=== PATIENT | male | born 1960 ===

== ENCOUNTER 2023-09-06 10:30 | Inpatient (IN) | payer MEDICAID ==
[2023-09-06] MEDS ORDERED: Ketorolac 30 MG/ML SDV IVPUSH ONE (11:34)
[2023-09-06] MEDS ORDERED: Polyethylene Glycol 3350 Powder 17 GM Packet PO PRN (11:39)
[2023-09-06] MEDS ORDERED: Acetaminophen 325 MG Tab PO PRN (11:39)
[2023-09-06] MEDS ORDERED: Sennosides/Docusate Sodium 50-8.6 MG Tab PO PRN (11:39)
[2023-09-06] MEDS ORDERED: Ondansetron 4 MG/2 ML SDV IV PRN (11:39)
[2023-09-06] MEDS ORDERED: 50% Dextrose in Water 50 ML Syringe IVPUSH PRN (11:39)
[2023-09-06] MEDS ORDERED: Glucagon,Human Recombinant 1 MG Vial IM PRN (11:39)
[2023-09-06] MEDS ORDERED: Temazepam 15 MG Cap PO PRN (11:39)
[2023-09-06] MEDS ORDERED: Nicotine 21 MG/24 Hr Patch TRDERM SCH ×2 (11:45)
[2023-09-06] MEDS ORDERED: Piperacillin/Tazobactam 4.5 GM in Sodium Chloride 0.9% 100 ML IV ONE ×2 (12:00→16:00)
[2023-09-06 12:02] LABS: BASOPHILS ABSOLUTE AUTO 0.02 10^3/uL (0.00-0.50); BASOPHILS PERCENT AUTO 0.3 % (0-1); EOSINOPHILS ABSOLUTE AUTO 0.21 10^3/uL (0.00-1.50); HEMATOCRIT 33.4 % (42.0-52.0); HEMOGLOBIN 10.7 g/dL (14.0-18.0); IMMATURE GRAN ABSOLUTE AUTO 0.01 10^3/uL (0.00-0.49); IMMATURE GRAN PERCENT AUTO 0.1 % (0.0-4.9); LYMPHOCYTES ABSOLUTE AUTO 2.45 10^3/uL (0.60-5.00); LYMPHOCYTES PERCENT AUTO 34.8 % (24-44); MEAN CORPUSCULAR HEMOGLOBIN 28.3 pg (27.0-32.0); MEAN CORPUSCULAR VOLUME 88.4 fL (83.0-97.0); MONOCYTES ABSOLUTE AUTO 0.51 10^3/uL (0.00-1.50); MONOCYTES PERCENT AUTO 7.2 % (0-10); NEUTROPHILS ABSOLUTE AUTO 3.84 x10^3/uL (1.80-8.00); NEUTROPHILS PERCENT AUTO 54.6 % (41-71); PLATELET COUNT,PLT 287 10^3/uL (150-400); RED BLOOD CELL COUNT 3.78 x10^6/uL (4.50-6.00)
[2023-09-06 12:20] LABS: ALANINE AMINOTRANSFERASE,ALT 14 U/L (12-78); ALBUMIN 2.6 g/dL (3.4-5.0); ALKALINE PHOSPHATASE 85 U/L (46-116); ASPARTATE AMNIOTRANSFERASE,AST 24 U/L (15-37); BILIRUBIN TOTAL 0.3 mg/dL (0.0-1.0); BLOOD UREA NITROGEN,BUN 16 mg/dL (7-18); CALCIUM 8.7 mg/dL (8.4-10.1); CARBON DIOXIDE,CO2 25 mmol/L (21-32); CHLORIDE,CL 103 mEq/L (98-106); EST CRCL DRUG DOSING (CG) 72.82 mL/min; ESTIMATED GFR 84 mL/min (>=60); GLUCOSE RANDOM 219 mg/dL (75-99); MAGNESIUM 2.1 mg/dL (1.8-2.4); POTASSIUM,K 3.6 mEq/L (3.5-5.0); PROTEIN TOTAL,TP 8.8 g/dL (6.4-8.2); SODIUM,NA 139 mEq/L (136-145)
[2023-09-06 12:21] LABS: ETHANOL BLOOD MEDICAL < 3 mg/dL (0-3)
[2023-09-06 12:22] LABS: LACTIC ACID 3.5 mmol/L (0.4-2.0)
[2023-09-06] MEDS ORDERED: Sodium Chloride 0.9% 1,000 ML IV ONE (12:50)
[2023-09-06 13:46] LABS: APPEARANCE,URINE CLEAR (CLEAR); BILIRUBIN,URINE NEGATIVE (NEGATIVE); COLOR,URINE YELLOW (YELLOW); GLUCOSE,URINE >=1000 mg/dL (NEGATIVE); KETONES,URINE NEGATIVE (NEGATIVE); LEUKOCYTE ESTERASE,URINE NEGATIVE (NEGATIVE); NITRITE,URINE NEGATIVE (NEGATIVE); OCCULT BLOOD,URINE TRACE-INTACT (NEGATIVE); PH,URINE 5.5 (4.5-8.0); PROTEIN,URINE 100 mg/dL (NEGATIVE); UROBILINOGEN,URINE 0.2 EU/dL (0.2-1.0)
[2023-09-06 13:49] LABS: AMPHETAMINES,URINE NEGATIVE (NEGATIVE); BARBITURATES,URINE NEGATIVE (NEGATIVE); BENZODIAZEPINE,URINE NEGATIVE (NEGATIVE); MDMA (ECSTASY), URINE NEGATIVE (NEGATIVE); METHADONE,URINE NEGATIVE (NEGATIVE); METHAMPHETAMINES,URINE POSITIVE (NEGATIVE); OPIATES,URINE NEGATIVE (NEGATIVE); OXYCODONE,URINE POSITIVE (NEGATIVE); PHENCYCLIDINE,URINE NEGATIVE (NEGATIVE); TCA,URINE NEGATIVE (NEGATIVE)
[2023-09-06 13:53] LABS: BACTERIA,URINE OCCASIONAL /HPF (NOT SEEN); RBC,URINE 0-5 /HPF (0-5); SQUAMOUS EPITHELIAL CELLS,UR NOT SEEN /HPF (NOT SEEN); WBC,URINE NOT SEEN /HPF (0-5); YEAST,URINE FEW /HPF (NOT SEEN)
[2023-09-06] MEDS ORDERED: Gabapentin 300 MG Cap PO SCH (14:00)
[2023-09-06] MEDS ORDERED: Bisacodyl 5 MG Tab PO PRN (14:12)
[2023-09-06] MEDS ORDERED: Insulin Regular, Human 100 Units/ML 3 ML Vial SUBCUT SCH (17:00)
[2023-09-06] MEDS ORDERED: Insulin Lispro 100 Units/ML 3 ML Vial SUBCUT SCH (17:30)
[2023-09-06] MEDS ORDERED: Iopamidol 755 Mg/ML 100 ML Bottle IVPUSH ONE (17:41)
[2023-09-06] MEDS: Piperacillin/Tazobactam 3.375 GM in Sodium Chloride 0.9% 100 ML IV SCH ×2 (18:14→23:55)
[2023-09-06] MEDS: oxyCODONE 5 MG Tab PO PRN (19:43)
[2023-09-06] MEDS: Gabapentin 300 MG Cap PO SCH (19:43)
[2023-09-06] MEDS ORDERED: Non-Formulary Medication 1 Each (Atorvastatin Calcium [Atorvastatin Calcium] 80 MG Tablet) PO SCH (20:00)
[2023-09-06] MEDS ORDERED: atorvaSTATin 20 MG Tab PO SCH (20:00)
[2023-09-06] MEDS ORDERED: Metoprolol Tartrate 25 MG Tab PO SCH (20:00)
[2023-09-06] MEDS ORDERED: Insulin Glarg,Human.Rec.Analog 100 Unit/ML 10 ML Vial SUBCUT SCH (20:00)
[2023-09-07] MEDS ORDERED: Pantoprazole 40 MG Tab.CR PO SCH (07:00)
[2023-09-07] MEDS ORDERED: Take Home: Pantoprazole 40 MG Tab.CR, 1 Tab Pack PO SCH (07:00)
[2023-09-07] MEDS ORDERED: Metoprolol Succinate 25 MG Tab.ER PO SCH (08:00)
[2023-09-07] MEDS ORDERED: Potassium Chloride 20 MEQ Tab.ER PO SCH (08:00)
[2023-09-07] MEDS ORDERED: Multivitamins with Iron/Calcium/Folic Acid/Minerals Tab PO SCH (08:00)
[2023-09-07] MEDS ORDERED: EMPAGLIFLOZIN 25 MG PO SCH (08:00)
[2023-09-07] MEDS ORDERED: Aspirin 81 MG Tab.EC PO SCH (08:00)
[2023-09-07] MEDS ORDERED: VANCOmycin 1.5 GM/300 ML 1.5 GM in Premix Bag 1 BAG IV SCH (08:00)
[2023-09-07] MEDS ORDERED: Clopidogrel 75 MG Tab PO SCH (08:00)
[2023-09-07] MEDS ORDERED: Enoxaparin 40 MG/0.4 ML Syringe SUBCUT SCH (08:00)
[2023-09-07] MEDS ORDERED: Furosemide 20 MG Tab PO SCH (08:00)
[2023-09-07] MEDS ORDERED: Aspirin 81 MG Tab.Chew PO SCH (08:00)
[2023-09-07] MEDS ORDERED: Polyethylene Glycol 3350 Powder 17 GM Packet PO SCH (08:00)
[2023-09-07] MEDS: Piperacillin/Tazobactam 3.375 GM in Sodium Chloride 0.9% 100 ML IV SCH (08:05)
[2023-09-07] MEDS: Gabapentin 300 MG Cap PO SCH (08:06)
[2023-09-07] MEDS: oxyCODONE 5 MG Tab PO PRN (08:06)
[2023-09-07 13:35] VITALS: BP 128/62; PULSE 72
== END 2023-09-07 14:26 | disposition home or self-care (01) | DRG 638 ==
LOC: CC.MS 10:30 → UNDOADMIN 10:30 → CC.MS 11:39
PROVIDERS: ADMIT Physician Assistant Medical; ATTEND Physician Assistant Medical
DX: E11.628 Type 2 diabetes mellitus with other skin complications (principal); L97.411 Non-pressure chronic ulcer of right heel and midfoot limited to breakdown of skin; M87.9 Osteonecrosis, unspecified; E11.621 Type 2 diabetes mellitus with foot ulcer; L03.032 Cellulitis of left toe; F15.10 Other stimulant abuse, uncomplicated; E11.65 Type 2 diabetes mellitus with hyperglycemia; E11.51 Type 2 diabetes mellitus with diabetic peripheral angiopathy without gangrene; I25.2 Old myocardial infarction; E78.00 Pure hypercholesterolemia, unspecified; Z79.82 Long term (current) use of aspirin; Z79.02 Long term (current) use of antithrombotics/antiplatelets; Z79.899 Other long term (current) drug therapy; Z95.5 Presence of coronary angioplasty implant and graft; Z89.511 Acquired absence of right leg below knee
CPT/HCPCS: 36415; 73720-LT; 75635; 80053; 80305-QW; 80307; 81001; 82947; 83605; 83735; 85025; 87040; A9270-GY; A9579; J1650; J1815-GY; J1885; J2543; J3370; J3490; J7030; J7050; Q9967